=== PATIENT | female | born 1995 | race Caucasian/White ===

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

== ENCOUNTER 2017-04-10 21:05 | Emergency (ER) | payer OTHER ==
[2017-04-10 21:12] VITALS: BP 122/72; TEMP 97.5; BMI 22.3
--- NOTE | 2017-04-10 21:36 | PDOC ---
History of Present Illness - General Chief Complaint: Nausea/Vomiting Stated Complaint: BACK PAIN Time Seen by Provider: 04/10/17 21:35 - History of Present Illness Initial Comments: 04/10/17 21:35 Ms. Shailesh Luke is a 21 yo female with a significant past medical history of GERD who presents to the emergency department complaining of 2 days of severe stomach pain. She reports that she has never had pain this bad before and that she has had several instances of nausea with vomiting. She also reports that she has not had a bowel movement in 3 or 4 days but that she has no difficulty urinating. The patient denies chest pain, shortness of breath, headache and dizziness. Denies fever, chills, and diarrhea. Denies dysuria, frequency, urgency and hematuria. Allergies: NKDA Past surgical history: 1 (11 months ago) Past History - Past Medical History Allergies/Adverse Reactions: Allergies Allergy/AdvReac Type Severity Reaction Status Date / Time No Known Allergies Allergy Verified 04/10/17 21:08 Home Medications: Ambulatory Orders Dicyclomine HCl [Bentyl -] 20 mg PO Q8H #21 tablet 04/11/17 Asthma: No Cancer: No Cardiac Disorders: No Diabetes: No HTN: No Seizures: No Thyroid Disease: No Other medical history: Pt denies - Suicide/Smoking/Psychosocial Hx Smoking History: Never smoked Have you smoked in the past 12 months: No Information on smoking cessation initiated: No Hx Alcohol Use: No Drug/Substance Use Hx: No Substance Use Type: None Hx Substance Use Treatment: No Review of Systems - Review of Systems Comments:: 04/10/17 21:35 GENERAL/CONSTITUTIONAL: No fever or chills. No weakness. HEAD, EYES, EARS, NOSE AND THROAT: No change in vision. No ear pain or discharge. No sore throat. CARDIOVASCULAR: No chest pain or shortness of breath RESPIRATORY: No cough, wheezing, or hemoptysis. GASTROINTESTINAL: +Nausea with NBNB vomiting (whatever she had eaten) and constipation. No diarrhea GENITOURINARY: No dysuria, frequency, or change in urination. MUSCULOSKELETAL: No joint or muscle swelling or pain. No neck or back pain. SKIN: No rash NEUROLOGIC: No headache, vertigo, loss of consciousness, or change in strength/ sensation. ENDOCRINE: No increased thirst. No abnormal weight change HEMATOLOGIC/LYMPHATIC: No anemia, easy bleeding, or history of blood clots. ALLERGIC/IMMUNOLOGIC: No hives or skin allergy. *Physical Exam - Vital Signs Last Vital Signs Temp Pulse Resp BP Pulse Ox 97.5 F L 79 18 122/72 100 04/10/17 21:09 04/10/17 21:09 04/10/17 21:09 04/10/17 21:09 04/10/17 21:09 - Physical Exam Comments: 04/10/17 21:36 GENERAL: Awake, alert, and fully oriented, acutely uncomfortable appearing with rubbing of stomach and epigastric region. HEAD: No signs of trauma, normocephalic, atraumatic EYES: PERRLA, EOMI, sclera anicteric, conjunctiva clear ENT: Auricles normal inspection, hearing grossly normal, nares patent, oropharynx clear without exudates. Moist mucosa NECK: Normal ROM, supple, no lymphadenopathy, JVD, or masses LUNGS: No distress, speaks full sentences, clear to auscultation bilaterally HEART: Regular rate and rhythm, normal S1 and S2, no murmurs, rubs or gallops, peripheral pulses normal and equal bilaterally. ABDOMEN: +Diffusely tender in all 4 quadrants. Soft, normoactive bowel sounds. No guarding, no rebound. No masses EXTREMITIES: Normal inspection, Normal range of motion, no edema. No clubbing or cyanosis. NEUROLOGICAL: Cranial nerves II through XII grossly intact. Normal speech, normal gait, no focal sensorimotor deficits SKIN: Warm, Dry, normal turgor, no rashes or lesions noted. ED Treatment Course - LABORATORY CBC & Chemistry Diagram: 04/10/17 22:23 04/10/17 22:23 Medical Decision Making - Medical Decision Making 04/10/17 22:23 Patient acutely uncomfortable upon examination, reports she has not had a bowel movement in 3 or 4 days. 04/10/17 23:21 Patient improved after zofran, 1 L fluids, pepcid and maalox. Labs sent as below. Patient not , UA negative. 04/10/17 23:40 Patient now able to localize pain to RLQ with rebound tenderness on the left side. CT abdomen/pelvis with oral/iv contrast ordered to r/o appendicitis. 04/10/17 23:46 Patient signed out to Dr. Ashby for follow-up of UA and CT results. 04/13/17 00:11 *DC/Admit/Observation/Transfer Diagnosis at time of Disposition: Abdominal pain Qualifiers: Abdominal location: unspecified location Qualified Code(s): R10.9 - Unspecified abdominal pain; R10.9 - Unspecified abdominal pain - Discharge Dispostion Disposition: HOME Condition at time of disposition: Good - Prescriptions Prescriptions: Dicyclomine HCl [Bentyl -] 20 mg PO Q8H #21 tablet - Patient Instructions Printed Discharge Instructions: DI for Abdominal Pain-Adult
[2017-04-10] MEDS ORDERED: KETOROLAC TROMETHAMINE 30 MG/1 ML VIAL IVPUSH ONE (21:57)
[2017-04-10] MEDS ORDERED: ONDANSETRON 4 MG/2 ML VIAL IVPUSH ONE (21:57)
[2017-04-10] MEDS ORDERED: SODIUM CHLORIDE 1,000 ML IV STA (21:57)
[2017-04-10] MEDS ORDERED: MAG HYDROX/AL HYDROX/SIMETH 30 ML UNIT-DOSE CUP PO ONE (22:13)
[2017-04-10] MEDS ORDERED: FAMOTIDINE 20 MG/50 ML IVPB 50 ML IVPB ONE ×2 (22:13→22:17)
[2017-04-10] MEDS ORDERED: MAG HYDROX/AL HYDROX/SIMETH 30 ML UNIT-DOSE CUP ONE (22:17)
[2017-04-10] MEDS ORDERED: ONDANSETRON 4 MG/2 ML VIAL ONE (22:17)
[2017-04-10] MEDS ORDERED: KETOROLAC TROMETHAMINE 30 MG/1 ML VIAL ONE (22:17)
[2017-04-10 22:33] LABS: BASOPHIL 0.4 % (0-2.0); EOSINOPHIL 0.8 % (0-4.5); MCH 27.9 pg (25.7-33.7); MCHC 33.6 g/dl (32.0-36.0); MEAN PLT VOLUME 8.7 fl (7.5-11.1); NEUTROPHILS 64.7 % (42.8-82.8); PLATELET COUNT 288 K/MM3 (134-434); RDW 14.1 % (11.6-15.6); WHITE BLOOD COUNT 8.3 K/mm3 (4.0-10.0)
[2017-04-10 22:44] LABS: URINE APPEARANCE CLOUDY; URINE BILIRUBIN NEGATIVE (NEGATIVE); URINE BLOOD NEGATIVE (NEGATIVE); URINE COLOR LTYELLOW; URINE GLUCOSE (UA) NEGATIVE (NEGATIVE); URINE KETONE NEGATIVE (NEGATIVE); URINE NITRITE NEGATIVE (NEGATIVE); URINE PROTEIN NEGATIVE (NEGATIVE); URINE UROBILINOGEN NEGATIVE mg/dL (0.2-1.0)
[2017-04-10 23:01] LABS: ALBUMIN 3.8 g/dl (3.4-5.0); ALK PHOS 143 U/L (45-117); ANION GAP 6 (8-16); BILIRUBIN,TOTAL 0.2 mg/dL (0.2-1.0); CALCIUM 9.3 mg/dL (8.5-10.1); CO2 29 mmol/L (21-32); CREATININE 0.6 mg/dL (0.55-1.02); GLUCOSE,RANDOM 109 mg/dL (74-106); SGOT/AST 14 U/L (15-37); SGPT/ALT 23 U/L (12-78); TOT PROT 7.5 g/dl (6.4-8.2)
--- NOTE | 2017-04-10 23:33 | PDOC ---
Attending Attestation - Resident Resident Name: TuckergaganDonnie - ED Attending Attestation I have performed the following: I have examined & evaluated the patient, The case was reviewed & discussed with the resident, I agree w/resident's findings & plan, Exceptions are as noted - HPI HPI: 04/10/17 23:31 21 yo F no pmhx , h/o c section here with n/v x 3 todayl. c/o generalized abd pain. no f/c no urinary complaints. last bm 3 days ago. no sick contacts. not . no mod factors. all emesis nonbloody non bilious. - Physicial Exam PE: 04/10/17 23:32 awake alert lungs clear heart rrr no mrg. abd soft mild epigastric ttp. no rebound no guarding. no cva tenderness. ext wwp no edema. skin warm no rash. nuero alert oriented x 3 - Medical Decision Making 04/10/17 23:32 differential gastritis cholecystiits, hypokalemia, uti dehydration. min tenderness. on exam. plan labs lipase sxs control. reassess. janie outpt management. lft maría. wbc maría. ucg negative. hydrated. ua pending.
--- NOTE | 2017-04-11 01:49 | PDOC ---
*Physical Exam - Vital Signs Last Vital Signs Temp Pulse Resp BP Pulse Ox 97.5 F L 79 18 122/72 100 04/10/17 21:09 04/10/17 21:09 04/10/17 21:09 04/10/17 21:09 04/10/17 21:09 - Physical Exam Comments: 04/11/17 03:08 GENERAL: Awake, alert, and fully oriented, in no acute distress HEAD: No signs of trauma, normocephalic, atraumatic EYES: PERRLA, EOMI, sclera anicteric, conjunctiva clear LUNGS: No distress, speaks full sentences, clear to auscultation bilaterally HEART: Regular rate and rhythm, normal S1 and S2, no murmurs, rubs or gallops, peripheral pulses normal and equal bilaterally. ABDOMEN: Soft, nontender, normoactive bowel sounds. No guarding, no rebound. No masses EXTREMITIES: Normal inspection, Normal range of motion, no edema. No clubbing or cyanosis. SKIN: Warm, Dry, normal turgor, no rashes or lesions noted. ED Treatment Course - LABORATORY CBC & Chemistry Diagram: 04/10/17 22:23 04/10/17 22:23 - ADDITIONAL ORDERS Additional order review: Laboratory Results 04/10/17 04/10/17 22:23 22:23 Sodium 139 Potassium 3.5 Chloride 104 Carbon Dioxide 29 D Anion Gap 6 L BUN 8 D Creatinine 0.6 Creat Clearance w eGFR > 60 Random Glucose 109 H D Calcium 9.3 Total Bilirubin 0.2 AST 14 L ALT 23 Alkaline Phosphatase 143 H Total Protein 7.5 Albumin 3.8 Lipase 232 Urine Color Ltyellow Urine Appearance Cloudy Urine pH 7.0 Urine Protein Negative Urine Glucose (UA) Negative Urine Ketones Negative Urine Blood Negative Urine Nitrite Negative Urine Bilirubin Negative Urine Urobilinogen Negative Urine HCG, Qual Negative 04/10/17 22:23 RBC 4.95 D MCV 83.0 MCHC 33.6 RDW 14.1 MPV 8.7 D Neutrophils % 64.7 Lymphocytes % 27.9 D Monocytes % 6.2 Eosinophils % 0.8 Basophils % 0.4 - Medications Given in the ED: ED Medications Discontinued Medications Generic Name Dose Route Start Last Admin Trade Name Freq PRN Reason Stop Dose Admin Al Hydroxide/Mg Hydroxide 30 ml 04/10/17 22:13 04/10/17 22:30 Mylanta Oral Suspension - PO 04/10/17 22:14 30 ml ONCE ONE Administration Sodium Chloride 1,000 mls @ 1,000 mls/hr 04/10/17 21:57 04/10/17 22:28 Normal Saline - IV 04/10/17 22:56 1,000 mls/hr ASDIR STA Administration Famotidine/Sodium Chloride 50 mls @ 100 mls/hr 04/10/17 22:13 04/10/17 22:30 Pepcid 20 Mg Premixed Ivpb - IVPB 04/10/17 22:42 100 mls/hr ONCE ONE Administration Ketorolac Tromethamine 30 mg 04/10/17 21:57 04/10/17 22:47 Toradol Injection - IVPUSH 04/10/17 21:58 30 mg ONCE ONE Administration Ondansetron HCl 4 mg 04/10/17 21:57 04/10/17 22:29 Zofran Injection IVPUSH 04/10/17 21:58 4 mg ONCE ONE Administration Medical Decision Making - Medical Decision Making 04/11/17 03:[address] Mills. 22F with abdominal pain, pending CT scan to rule out appendicitis. CT scan negative. Patient's pain has improved. Given return precautions. Will discharge with PCP follow up. *DC/Admit/Observation/Transfer Diagnosis at time of Disposition: Abdominal pain - Discharge Dispostion Disposition: HOME Condition at time of disposition: Good Admit: No - Prescriptions Prescriptions: Dicyclomine HCl [Bentyl -] 20 mg PO Q8H #21 tablet - Patient Instructions Printed Discharge Instructions: DI for Abdominal Pain-Adult
[2017-04-11 03:28] VITALS: PULSE 81
[2017-04-11 10:04] LABS: URINE LEUK ESTERASE 3+ (NEGATIVE)
[2017-04-11 10:05] LABS: URINE BACTERIA MANY /hpf (NEGATIVE); URINE RBC 0-3 /hpf (0-3)
--- NOTE | 2017-04-11 11:44 | PDOC ---
Patient Follow-up (Call Back) - Post ED Follow - Up Chief Complaint: Pain Condition at time of discharge: Good Disposition at time of original discharge: HOME - Disposition Additional Instructions/Notes: spoke with the patient regarding the cat scan result. 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 She has been informed that the position of the IUD may be ineffective for control. Pt understands this.
== END 2017-04-11 03:28 | disposition home or self-care (01) ==
LOC: JER 21:05
PROC: 3E033GC Introduction of Other Therapeutic Substance into Peripheral Vein, Percutaneous Approach (ICD-10-PCS; principal; 2017-04-10)
PROC: 3E0333Z Introduction of Anti-inflammatory into Peripheral Vein, Percutaneous Approach (ICD-10-PCS; 2017-04-10)
PROC: 3E0337Z Introduction of Electrolytic and Water Balance Substance into Peripheral Vein, Percutaneous Approach (ICD-10-PCS; 2017-04-10)
DX: R10.9 Unspecified abdominal pain (principal)
CPT/HCPCS: 36415; 74177-TC; 80053; 81003; 81015; 83690; 84703; 85025; 96361; 96365; 96375; 99283-25

== ENCOUNTER 2018-05-19 00:30 | Inpatient (IN) | payer OTHER ==
[~2018-05-19 00:30] MED LIST: ELECTROLYTE-148 SOLN 1,000 ML IV SCH
[2018-05-19 01:42] LABS: BASO % 0.4 % (0-2.0); EOS % 0.3 % (0-4.5); HEMATOCRIT 37.3 % (32.4-45.2); HEMOGLOBIN 12.4 GM/dL (10.7-15.3); LYMPH % 15.4 % (8-40); MCH 26.3 pg (25.7-33.7); MCHC 33.2 g/dl (32.0-36.0); MEAN CELL VOLUME 79.3 fl (80-96); MEAN PLT VOLUME 9.6 fl (7.5-11.1); MONO % 6.3 % (3.8-10.2); NEUT % 77.6 % (42.8-82.8); PLATELET COUNT 198 K/MM3 (134-434); RDW 15.5 % (11.6-15.6); WHITE BLOOD COUNT 8.8 K/mm3 (4.0-10.0)
[2018-05-19 02:04] VITALS: BMI 29.5
[2018-05-19 02:05] LABS: ANION GAP 10 MMOL/L (8-16); BLOOD UREA NITROGEN 10 mg/dL (7-18); CALCIUM 8.7 mg/dL (8.5-10.1); CHLORIDE 107 mmol/L (98-107); CO2 22 mmol/L (21-32); CREATININE 0.5 mg/dL (0.55-1.3); GLUCOSE,RANDOM 85 mg/dL (74-106); POTASSIUM 3.8 mmol/L (3.5-5.1); SODIUM 139 mmol/L (136-145)
[2018-05-19 02:11] LABS: INR 0.92 (0.83-1.09); PROTHROMBIN TIME (PATIENT) 10.8 SEC (9.7-13.0)
[2018-05-19 02:13] LABS: ACTIVATED PTT 28.7 SECONDS (25.2-36.5)
[2018-05-19] MEDS ORDERED: FENTANYL/BUPIVACAINE/NS/PF - PCEA - 50 ML DISP.SYRIN EP ONE (02:27)
[2018-05-19] MEDS ORDERED: FENTANYL/BUPIVACAINE/NS/PF - PCEA - 50 ML DISP.SYRIN EP SCH ×2 (03:30→04:59)
[2018-05-19] MEDS ORDERED: NALOXONE HCL 0.4 MG/ML VIAL IVPUSH PRN (03:30)
[2018-05-19] MEDS ORDERED: ELECTROLYTE-148 SOLN 1,000 ML IV SCH (03:45)
[2018-05-19] MEDS ORDERED: DEXTROSE 5%-LACTATED RINGERS 1,000 ML IV SCH (03:45)
--- NOTE | 2018-05-19 03:50 | HP ---
Past Medical History - Admission Chief Complaint: Labor pain History of Present Illness: 23 yo @ 39 weeks gestation, admitted for labor pain. She had one prior ; she desires a trial of labor. History Source: Patient Limitations to Obtaining History: No Limitations - Past Medical History ...: 2 ...Para: 1 ...Term: 1 ...: 0 ...Spon : 0 ...Induced : 0 ...Multiple Gestation: 0 ...EDC by Sono: 05/22/18 Endocrine: Yes: Diabetes Mellitus (gestational DM, diet controlled) - Past Surgical History Past Surgical History: Yes: Hx Myomectomy: No Hx Transabdominal Cerclage: No - Smoking History Smoking history: Never smoked Have you smoked in the past 12 months: No - Alcohol/Substance Use Hx Alcohol Use: No History of Substance Use: reports: None - Social History Usual Living Arrangement: Yes: With Significant Other History of Recent Travel: No Home Medications - Allergies Allergies/Adverse Reactions: Allergies Allergy/AdvReac Type Severity Reaction Status Date / Time No Known Allergies Allergy Verified 05/19/18 02:06 - Home Medications Home Medications: Ambulatory Orders Pnv No.95/Ferrous Fum/Folic AC [ Formula] 1 each PO DAILY 05/18/18 Family Disease History - Family Disease History Family History: Unremarkable Review of Systems - Review of Systems Constitutional: reports: No Symptoms Eyes: reports: No Symptoms HENT: reports: No Symptoms Neck: reports: No Symptoms Cardiovascular: reports: No Symptoms Respiratory: reports: No Symptoms Gastrointestinal: reports: No Symptoms Genitourinary: reports: Pain Breasts: reports: No Symptoms Reported Musculoskeletal: reports: No Symptoms Integumentary: reports: No Symptoms Neurological: reports: No Symptoms Endocrine: reports: No Symptoms Hematology/Lymphatic: reports: No Symptoms Psychiatric: reports: No Symptoms Pain Intensity: 8 Physical Exam - Maternity Vital Signs: Vital Signs Temperature 98.3 F 05/19/18 01:45 Pulse Rate 79 05/19/18 01:45 Respiratory Rate 18 05/19/18 01:45 Blood Pressure 127/77 05/19/18 01:45 O2 Sat by Pulse Oximetry (%) Constitutional: Yes: Well Nourished Eyes: Yes: Conjunctiva Clear HENT: Yes: Atraumatic Neck: Yes: Supple Cardiovascular: Yes: Regular Rate and Rhythm Lungs: Clear to auscultation - Abdominal Exam/OB Number of Fetuses: Single Presentation: Vertex - Vaginal Exam/OB Dilatation (cm): 4 Effacement (%): 80 Amniotic Membrane Status: Intact Station: -1 - Physical Exam Musculoskeletal: Yes: WNL Extremities: Yes: WNL ...Motor Strength: WNL Psychiatric: Yes: Alert, Oriented - Labs Lab Results: CBC, BMP 05/19/18 01:20 05/19/18 01:20 Problem List - Problems (1) Previous section complicating , antepartum condition or complication Code(s): O34.219 - MATERNAL CARE FOR UNSP TYPE SCAR FROM PREVIOUS DEL Assessment/Plan Previous Pain in labor Admit to L&D for as requested by patient Epidural anesthesia Close monitoring
[2018-05-19] MEDS ORDERED: OXYTOCIN 20 UNITS in 0.9% NS 20 UNIT/1,000 ML INFUS.BAG IV ONE ×2 (07:58→10:53)
[2018-05-19] MEDS: OXYTOCIN 20 UNITS in 0.9% NS 20 UNIT/1,000 ML INFUS.BAG IV SCH ×2 (09:35→10:55)
[2018-05-19] MEDS ORDERED: WITCH HAZEL 50% (TUCKS) 40 PAD/JAR PAD TP PRN (09:47)
[2018-05-19] MEDS ORDERED: BISACODYL 10 MG SUPP.RECT RC PRN (09:47)
[2018-05-19] MEDS ORDERED: BENZOCAINE 20% 57 GM BOTTLE TP PRN (09:47)
[2018-05-19] MEDS ORDERED: METHYLERGONOVINE MALEATE 0.2 MG/1 ML AMP IM PRN (09:47)
[2018-05-19] MEDS ORDERED: BENZOCAINE 28 GM HEMORRHOIDAL OINTMENT TP PRN (09:47)
--- NOTE | 2018-05-19 09:52 | PN ---
Delivery - Delivery Vaginal Delivery: V-Layla Type of Anesthesia: Epidural Episiotomy/Laceration: None EBL (cc): 300 Delivery, Single - [place] Feeding Plan Initial Plan: Elected not to breastfeed exclusively throughout hospitalization Remarks - Remarks Remarks: Vaginal after previous of a live girl over intact perineum. Nose / Oropharynx suctioon @ perineum. Nuchal cord x 1 clamped and cut. Baby handed to Pleating Supervisor. Placenta expelled spontaneously intact.
[2018-05-19] MEDS ORDERED: IBUPROFEN 600 MG TABLET (FP) PO ONE (10:53)
[2018-05-19] MEDS ORDERED: ACETAMINOPHEN 325 MG TABLET (FP) ONE (10:53)
[2018-05-19] MEDS: ACETAMINOPHEN 325 MG TABLET (FP) PO PRN ×2 (10:55→16:10)
[2018-05-19] MEDS: IBUPROFEN 600 MG TABLET (FP) PO PRN ×2 (10:55→16:10)
[2018-05-19] MEDS: PRENATAL VITAMINS W/ FOLIC ACID TABLET (FP) PO SCH (12:19)
[2018-05-19] MEDS: FERROUS SO4 325 MG TABLET (FP) PO SCH ×2 (12:19→17:20)
[2018-05-20 07:59] LABS: BASO % 0.4 % (0-2.0); EOS % 0.5 % (0-4.5); LYMPH % 18.4 % (8-40); MCH 25.9 pg (25.7-33.7); MCHC 32.3 g/dl (32.0-36.0); MEAN CELL VOLUME 80.1 fl (80-96); MEAN PLT VOLUME 9.7 fl (7.5-11.1); MONO % 4.7 % (3.8-10.2); PLATELET COUNT 150 K/MM3 (134-434); RBC 4.25 M/mm3 (3.60-5.2); RDW 15.8 % (11.6-15.6); WHITE BLOOD COUNT 10.4 K/mm3 (4.0-10.0)
[2018-05-20] MEDS: FERROUS SO4 325 MG TABLET (FP) PO SCH ×2 (08:00→17:21)
--- NOTE | 2018-05-20 08:58 | PN ---
Post Progress Note - Subjective Subjective: no complains Post Day: 1 Type of Delivery: Vital Signs: Vital Signs Temperature 98 F 05/20/18 05:48 Pulse Rate 74 05/20/18 05:48 Respiratory Rate 18 05/20/18 05:48 Blood Pressure 122/76 05/20/18 05:48 O2 Sat by Pulse Oximetry (%) 100 05/19/18 08:00 Breast Exam: Yes: Soft. No: Engorged Uterus: Yes: Fundus Firm, Fundus below umbilicus, Non-tender Lochia: Yes: Rubra Lochia, amount: Moderate Extremities: Yes: Calves non-tender Perineum: Yes: Intact Activity: Ambulating - Labs Labs: CBC WBC 10.4 K/mm3 (4.0-10.0) H 05/20/18 06:30 RBC 4.25 M/mm3 (3.60-5.2) 05/20/18 06:30 Hgb 11.0 GM/dL (10.7-15.3) 05/20/18 06:30 Hct 34.0 % (32.4-45.2) 05/20/18 06:30 MCV 80.1 fl (80-96) 05/20/18 06:30 MCH 25.9 pg (25.7-33.7) 05/20/18 06:30 MCHC 32.3 g/dl (32.0-36.0) 05/20/18 06:30 RDW 15.8 % (11.6-15.6) H 05/20/18 06:30 Plt Count 150 K/MM3 (134-434) D 05/20/18 06:30 MPV 9.7 fl (7.5-11.1) 05/20/18 06:30 Absolute Neuts (auto) 7.9 K/mm3 (1.5-8.0) 05/20/18 06:30 Neutrophils % 76.0 % (42.8-82.8) 05/20/18 06:30 Lymphocytes % 18.4 % (8-40) 05/20/18 06:30 Monocytes % 4.7 % (3.8-10.2) 05/20/18 06:30 Eosinophils % 0.5 % (0-4.5) 05/20/18 06:30 Basophils % 0.4 % (0-2.0) 05/20/18 06:30 Nucleated RBC % 0 % (0-0) 05/20/18 06:30 Problem List - Problems (1) , delivered Code(s): O34.219 - MATERNAL CARE FOR UNSP TYPE SCAR FROM PREVIOUS DEL (2) Encounter for visit Code(s): Z39.2 - ENCOUNTER FOR ROUTINE FOLLOW-UP Assessment/Plan stable plan ct pp care discharge tomorrow.
[2018-05-20] MEDS: PRENATAL VITAMINS W/ FOLIC ACID TABLET (FP) PO SCH (09:15)
[2018-05-20] MEDS ORDERED: DIPHTH,PERTUSS(ACELL),TET 0.5 ML DISP.SYRIN IM ONE (10:00)
[2018-05-20] MEDS: ACETAMINOPHEN 325 MG TABLET (FP) PO PRN (15:01)
[2018-05-20] MEDS: IBUPROFEN 600 MG TABLET (FP) PO PRN (15:02)
[2018-05-20] MEDS ORDERED: SENNOSIDES/DOCUSATE COMBO (SENNA PLUS) TABLET (UD) PO PRN (22:00)
[2018-05-21] MEDS: FERROUS SO4 325 MG TABLET (FP) PO SCH (08:17)
[2018-05-21 09:01] VITALS: BP 110/63; PULSE 72; TEMP 98.6
[2018-05-21] MEDS: PRENATAL VITAMINS W/ FOLIC ACID TABLET (FP) PO SCH (10:02)
[2018-05-21] MEDS: ACETAMINOPHEN 325 MG TABLET (FP) PO PRN (12:04)
[2018-05-21] MEDS: IBUPROFEN 600 MG TABLET (FP) PO PRN (12:05)
--- NOTE | 2018-05-21 13:17 | DS ---
Physical Examination Vital Signs: Vital Signs Temperature 98.6 F 05/21/18 09:00 Pulse Rate 72 05/21/18 09:00 Respiratory Rate 20 05/21/18 09:00 Blood Pressure 110/63 05/21/18 09:00 O2 Sat by Pulse Oximetry (%) 100 05/19/18 08:00 Constitutional: Yes: Well Nourished, No Distress, Calm Eyes: Yes: WNL, Conjunctiva Clear, EOM Intact HENT: Yes: WNL, Atraumatic, Normocephalic Neck: Yes: WNL, Supple, Trachea Midline Cardiovascular: Yes: WNL, Regular Rate and Rhythm Respiratory: Yes: WNL, Regular, CTA Bilaterally Gastrointestinal: Yes: WNL, Normal Bowel Sounds Musculoskeletal: Yes: WNL Extremities: Yes: WNL Edema: No Integumentary: Yes: WNL Neurological: Yes: WNL, Alert, Oriented ...Motor Strength: WNL Psychiatric: Yes: WNL Labs: CBC, BMP 05/20/18 06:30 05/19/18 01:20 Discharge Summary Reason For Visit: LABOR Current Active Problems Encounter for visit (Acute) Previous section complicating , antepartum condition or complication (Acute) , delivered (Acute) Hospital Course: 23yo s/p , PPD2 Routine PP D/C to home today Parag Bang MD Condition: Stable - Instructions Disposition: HOME - Home Medications Comprehensive Discharge Medication List: Ambulatory Orders Pnv No.95/Ferrous Fum/Folic AC [ Formula] 1 each PO DAILY 05/18/18
== END 2018-05-21 15:15 | disposition home or self-care (01) | DRG 560 ==
LOC: JLDR 00:30 → J3W 11:47
PROVIDERS: ADMIT Obstetrics & Gynecology; ATTEND Obstetrics & Gynecology
PROC: 10E0XZZ Delivery of Products of Conception, External Approach (ICD-10-PCS; principal; 2018-05-19)
DX: O34.211 Maternal care for low transverse scar from previous cesarean delivery (principal); O24.410 Gestational diabetes mellitus in pregnancy, diet controlled; O69.81X0 Labor and delivery complicated by cord around neck, without compression, not applicable or unspecified; Z3A.39 39 weeks gestation of pregnancy; Z37.0 Single live birth
CPT/HCPCS: 36415; 59409; 80048; 85025; 85610; 85730; 86593; 86850; 86900; 86901; 90686; 90715; G0008